=== PATIENT | female | born 1970 | race Hispanic/Latino ===

== ENCOUNTER 2023-11-29 16:50 | Emergency (ER) | payer OTHER ==
[~2023-11-29] VITALS: Ht 160 cm; Wt 68.5 kg
[~2023-11-29 16:50] MED LIST: PAXLOVID 300-11 EAC1 PO; PREDNISONE20 MG PO; VENTOLIN HFA18 GM INH
[2023-11-29 17:41] LABS: BASOPHILS # (AUTO) 0.1 (0.0-0.1); BASOPHILS % 1.1 % (0.0-1.0); EOSINOPHILS # (AUTO) 0.2 (0.0-0.4); EOSINOPHILS % 3.1 % (0.0-6.0); HEMATOCRIT 43.5 % (34.2-44.1); HEMOGLOBIN 13.8 g/dL (12.0-16.0); LYMPHOCYTES # (AUTO) 2.4 (1.0-3.2); LYMPHOCYTES % 37.3 % (18.0-39.1); MEAN CORPUSCULAR HEMOGLOBIN 28.5 pg (28-32); MEAN CORPUSCULAR HGB CONC 31.7 g/dL (31-35); MEAN CORPUSCULAR VOLUME 89.9 fL (81-99); MONOCYTES # (AUTO) 0.4 (0.2-0.8); MONOCYTES % 5.4 % (4.4-11.3); NEUTROPHILS # (AUTO) 3.5 (2.1-6.9); NEUTROPHILS % 52.9 % (38.7-80.0); PLATELET COUNT 256 x10e3/uL (140-360); RED BLOOD COUNT 4.84 x10e6/uL (3.6-5.1); WHITE BLOOD COUNT 6.52 x10e3/uL (4.8-10.8)
[2023-11-29 17:50] LABS: INR 0.95; PARTIAL THROMBOPLASTIN TIME 29.3 seconds (23.8-35.5); PROTHROMBIN TIME 13.2 seconds (11.9-14.5)
[2023-11-29] MEDS: SODIUM CHLORIDE 0.9% 1000ML 1,000 ML IV STA (17:53)
[2023-11-29] MEDS: MECLIZINE HCL 12.5 MG TAB PO ONE (17:53)
[2023-11-29 18:01] LABS: ALANINE AMINOTRANSFERASE 15 IU/L (0-55); ALBUMIN/GLOBULIN RATIO 1.2 (0.8-2.0); ALKALINE PHOSPHATASE 75 IU/L (40-150); ANION GAP 13.2 mmol/L (8-16); BILIRUBIN,TOTAL 0.6 mg/dL (0.2-1.2); BLOOD UREA NITROGEN 9 mg/dL (7-26); BUN/CREATININE RATIO 10 (6-25); CALCIUM 9.4 mg/dL (8.4-10.2); CARBON DIOXIDE 23 mmol/L (22-29); CHLORIDE 108 mmol/L (98-107); CREATINE KINASE 39 IU/L (29-168); CREATININE, SERUM 0.87 mg/dL (0.57-1.11); EST GLOMERULAR FILTRATION RATE 81 ML/MIN (>=60); GLUCOSE 91 mg/dL (74-118); POTASSIUM 4.2 mmol/L (3.5-5.1); SODIUM 140 mmol/L (136-145); TOTAL PROTEIN 7.3 g/dL (6.5-8.1)
[2023-11-29 18:18] LABS: TROPONIN I < 0.05 ng/mL (0.0-0.40)
[2023-11-29 18:58] VITALS: PULSE 80; RESP 18; TEMP 98.7
[2023-11-29] MEDS ORDERED: ANTIVERT25 M1 PO (19:09)
[2023-11-29 19:38] VITALS: BP 116/70; PULSE 72; RESP 16; TEMP 98.4; O2SAT 99
== END 2023-11-29 19:19 | disposition home or self-care (01) ==
LOC: ER 17:04
DX: R42 Dizziness and giddiness (principal); R20.0 Anesthesia of skin; R53.1 Weakness; R51.9 Headache, unspecified; R11.0 Nausea; Z11.52 Encounter for screening for COVID-19; R94.31 Abnormal electrocardiogram [ECG] [EKG]
CPT/HCPCS: 36415; 70450; 71045; 80053; 82550; 83735; 84484; 85025; 85610; 85730; 93005; 99284; J7030; J8597; U0002

== ENCOUNTER 2025-01-11 01:38 | Emergency (ER) | payer OTHER, BC ==
[~2025-01-11] VITALS: Ht 160 cm; Wt 65.8 kg
[~2025-01-11 01:38] MED LIST changes: +ANTIVERT25 M1 PO
[2025-01-11 01:45] VITALS: TEMP 98
[2025-01-11 02:14] LABS: BASOPHILS % 1.0 % (0.0-1.0); EOSINOPHILS % 3.2 % (0.0-6.0); LYMPHOCYTES % 44.8 % (18.0-39.1); MONOCYTES % 6.7 % (4.4-11.3); NEUTROPHILS % 44.1 % (38.7-80.0); RED CELL DISTRIBUTION WIDTH 13.0 % (11.7-14.4)
[2025-01-11 02:25] LABS: EST GLOMERULAR FILTRATION RATE 76.0 ML/MIN (>=60)
[2025-01-11 02:35] VITALS: PULSE 67; RESP 19
[2025-01-11 02:41] VITALS: BP 107/78; PULSE 64; RESP 12; TEMP 97.9; O2SAT 100
== END 2025-01-11 02:49 | disposition home or self-care (01) ==
LOC: ER 01:46
DX: H02.9 Unspecified disorder of eyelid (principal); M79.602 Pain in left arm; D84.9 Immunodeficiency, unspecified
CPT/HCPCS: 36415; 80053; 84484; 85025; 93005; 99284